=== PATIENT | female | born 1965 | race Caucasian/White ===

== ENCOUNTER 2021-06-15 12:42 | Emergency (ER) | payer OTHER ==
[~2021-06-15] VITALS: Ht 170.2 cm; Wt 90.9 kg
[2021-06-15 14:03] LABS: BASOPHILS % (AUTO) 0.6 % (0.0-2.0); EOSINOPHILS % (AUTO) 1.7 % (1.0-6.0); HEMATOCRIT 36.5 % (36-46); HEMOGLOBIN 11.8 g/dL (12.0-16.0); LYMPHOCYTES # (AUTO) 2.4 K/uL (1.0-4.8); LYMPHOCYTES % (AUTO) 22.6 % (22.0-44.0); MEAN CORPUSCULAR HEMOGLOBIN 24.9 pg (26.0-34.0); MEAN CORPUSCULAR HGB CONC 32.4 G/dL (31.0-37.0); MEAN CORPUSCULAR VOLUME 77 fL (80-100); MONOCYTES # (AUTO) 0.8 K/uL (0.1-1.0); MONOCYTES % (AUTO) 7.5 % (2.0-9.0); NEUTROPHILS # (AUTO) 7.2 K/uL (1.8-7.7); NEUTROPHILS % (AUTO) 67.6 % (40.0-70.0); PLATELET COUNT (AUTO) 249 K/uL (150-450); RED BLOOD CELL COUNT(AUTO) 4.74 MIL/uL (4.00-5.20); RED CELL DISTRIBUTION WIDTH 18.3 % (11.5-14.5)
[2021-06-15 14:14] LABS: ANION GAP 4 mmol/L (8-16); CALCIUM, TOTAL 8.8 mg/dL (8.8-10.5); CARBON DIOXIDE 34 mmol/L (22-29); CHLORIDE 101 mmol/L (98-107); CREATININE 0.96 mg/dL (0.60-1.30); GLOMERULAR FILTR. RATE CALC 60 mL/min (>60); GLUCOSE,RANDOM 127 mg/dL (70-110); POTASSIUM 4.2 mmol/L (3.5-5.1); SODIUM SERUM 139 mmol/L (136-145); UREA NITROGEN, BLOOD 18 mg/dL (7-18)
[2021-06-15 14:19] LABS: ALANINE AMINOTRANSFERASE 99 U/L (12-78); ALBUMIN 2.8 g/dL (3.4-5.0); ALKALINE PHOSPHATASE 68 U/L (46-116); ASPARTATE AMINOTRANSFERASE 86 U/L (15-37); BILIRUBIN,TOTAL 0.4 mg/dL (0.1-1.0); LIPASE 46 U/L (73-393); TOTAL PROTEIN, SERUM 7.5 g/dL (6.4-8.2)
[2021-06-15 14:23] LABS: B-TYPE NATRIURETIC PEPTIDE 8 pg/mL (0-100)
[2021-06-15 14:26] LABS: LACTIC ACID 0.6 mmol/L (0.4-2.0)
[2021-06-15 14:30] LABS: COVID AG,FIA SOURCE NASOPHARYNGEAL
[2021-06-15] MEDS ORDERED: PRED-549 PO (14:45)
[2021-06-15] MEDS ORDERED: METH5SOL3 PO (14:45)
[2021-06-15] MEDS ORDERED: ALPR-709 PO (14:45)
[2021-06-15] MEDS ORDERED: ARIP2TAB3 PO (14:45)
[2021-06-15] MEDS ORDERED: AZITHROMYCIN 500 MG/NS 250 ML IV ONE (15:30)
[2021-06-15] MEDS ORDERED: CefTRIAXone 1 GM/DEXTROSE 50 ML IV ONE (15:30)
[2021-06-15] MEDS ORDERED: DOXYCYCLINE HYCLATE 100 MG TABLET PO ONE (15:45)
[2021-06-15 15:56] VITALS: BP 121/70
[2021-06-15] MEDS ORDERED: DOXY50 PO (15:57)
== END 2021-06-15 16:23 | disposition home or self-care (01) ==
LOC: EMS 12:42
DX: J44.9 Chronic obstructive pulmonary disease, unspecified (principal); J18.9 Pneumonia, unspecified organism; I50.9 Heart failure, unspecified; F17.210 Nicotine dependence, cigarettes, uncomplicated; F11.90 Opioid use, unspecified, uncomplicated; Z20.822 Contact with and (suspected) exposure to COVID-19
CPT/HCPCS: 36415; 71045; 80053; 83605; 83690; 83880; 84484; 85025; 87426; 93005; 99285; G0480

== ENCOUNTER 2021-12-04 11:09 | Emergency (ER) | payer OTHER ==
[~2021-12-04] VITALS: Ht 170.2 cm; Wt 90.9 kg
[~2021-12-04 11:09] MED LIST: ALPR-709 PO; ARIP2TAB3 PO; DOXY50 PO; METH5SOL3 PO; PRED-549 PO
[2021-12-04 12:18] VITALS: BP 129/90
[2021-12-04] MEDS ORDERED: POVIDONE-IODINE 10% 120 ML SOLUTION TP ONE (12:30)
[2021-12-04] MEDS ORDERED: BUPIVACAINE HCL/PF 0.25% 10 ML VIAL SQ ONE (12:30)
[2021-12-04] MEDS ORDERED: IBUPROFEN 600 MG TABLET PO ONE (13:00)
[2021-12-04] MEDS ORDERED: IBUP-2070 PO (13:01)
[2021-12-04] MEDS ORDERED: SULF-261 PO (13:01)
[2021-12-04] MEDS ORDERED: CEPH-558 PO (13:01)
== END 2021-12-04 13:34 | disposition home or self-care (01) ==
LOC: EMS 11:09
DX: L02.414 Cutaneous abscess of left upper limb (principal); I50.9 Heart failure, unspecified; J44.9 Chronic obstructive pulmonary disease, unspecified; F17.210 Nicotine dependence, cigarettes, uncomplicated; F11.90 Opioid use, unspecified, uncomplicated
CPT/HCPCS: 99283; 10060; J3490

== ENCOUNTER 2021-12-11 21:59 | Emergency (ER) | payer OTHER ==
[~2021-12-11] VITALS: Ht 170.2 cm; Wt 90.9 kg
[~2021-12-11 21:59] MED LIST changes: +CEPH-558 PO; +IBUP-2070 PO; +SULF-261 PO
[2021-12-12] MEDS ORDERED: CLINDAMYCIN 600 MG/D5% WATER 50 ML IV ONE (00:45)
[2021-12-12] MEDS ORDERED: CLIN300C58 PO (00:48)
[2021-12-12 01:20] LABS: BASOPHILS % (AUTO) 0.4 % (0.0-2.0); HEMATOCRIT 36.8 % (36-46); HEMOGLOBIN 11.9 g/dL (12.0-16.0); LYMPHOCYTES # (AUTO) 1.8 K/uL (1.0-4.8); LYMPHOCYTES % (AUTO) 30.2 % (22.0-44.0); MEAN CORPUSCULAR HEMOGLOBIN 26.6 pg (26.0-34.0); MEAN CORPUSCULAR HGB CONC 32.3 G/dL (31.0-37.0); MEAN CORPUSCULAR VOLUME 82 fL (80-100); MONOCYTES # (AUTO) 0.5 K/uL (0.1-1.0); MONOCYTES % (AUTO) 8.2 % (2.0-9.0); NEUTROPHILS # (AUTO) 3.5 K/uL (1.8-7.7); NEUTROPHILS % (AUTO) 59.2 % (40.0-70.0); PLATELET COUNT (AUTO) 156 K/uL (150-450); RED BLOOD CELL COUNT(AUTO) 4.48 MIL/uL (4.00-5.20); RED CELL DISTRIBUTION WIDTH 16.6 % (11.5-14.5)
[2021-12-12 01:30] LABS: CALCIUM, TOTAL 9.5 mg/dL (8.8-10.5); CREATININE 1.01 mg/dL (0.60-1.30); POTASSIUM 4.4 mmol/L (3.5-5.1)
[2021-12-12 01:36] LABS: ALBUMIN 2.9 g/dL (3.4-5.0); BILIRUBIN,TOTAL 0.2 mg/dL (0.1-1.0); TOTAL PROTEIN, SERUM 7.7 g/dL (6.4-8.2)
[2021-12-12 01:44] LABS: COVID AG,FIA SOURCE NASAL SWAB
[2021-12-12 02:02] LABS: INFLUENZA TYPE A NEGATIVE FOR TYPE A (NEGATIVE); INFLUENZA TYPE B NEGATIVE FOR TYPE B (NEGATIVE)
[2021-12-12] MEDS ORDERED: ACET-66 PO (03:12)
[2021-12-12 03:18] VITALS: BP 137/83
== END 2021-12-12 03:26 | disposition home or self-care (01) ==
LOC: EMS 22:00
DX: L03.114 Cellulitis of left upper limb (principal); J44.9 Chronic obstructive pulmonary disease, unspecified; F11.20 Opioid dependence, uncomplicated; I50.9 Heart failure, unspecified; F17.210 Nicotine dependence, cigarettes, uncomplicated; F32.A Depression, unspecified; Z87.19 Personal history of other diseases of the digestive system; Z87.898 Personal history of other specified conditions; Z98.890 Other specified postprocedural states; Z20.822 Contact with and (suspected) exposure to COVID-19
CPT/HCPCS: 99284; 87426; 80053; 85025; 87804; 36415; 96365; J3490

== ENCOUNTER 2022-01-31 11:24 | Inpatient (IN) | payer OTHER ==
[~2022-01-31] VITALS: Ht 170.2 cm; Wt 93.1 kg
[~2022-01-31 11:24] MED LIST changes: +ACET-66 PO; +CLIN300C58 PO
[2022-01-31] MEDS ORDERED: IPRATROPIUM BROMIDE 0.5 MG/2.5 ML NEB SOLUTION NEB ONE (11:45)
[2022-01-31] MEDS ORDERED: ALBUTEROL SULFATE 5 MG/ML 20 ML NEB SOLN [BULK] NEB ONE (11:45)
[2022-01-31] MEDS ORDERED: 0.9% SODIUM CHLORIDE 5 ML NEB SOLUTION NEB ONE (11:53)
[2022-01-31 12:01] LABS: COVID AG,FIA SOURCE NASAL SWAB
[2022-01-31 12:26] LABS: INFLUENZA TYPE A NEGATIVE FOR TYPE A (NEGATIVE); INFLUENZA TYPE B NEGATIVE FOR TYPE B (NEGATIVE)
[2022-01-31 12:28] LABS: BASOPHILS % (AUTO) 0.6 % (0.0-2.0); EOSINOPHILS % (AUTO) 3.2 % (1.0-6.0); HEMATOCRIT 28.8 % (36-46); HEMOGLOBIN 9.2 g/dL (12.0-16.0); LYMPHOCYTES # (AUTO) 1.2 K/uL (1.0-4.8); LYMPHOCYTES % (AUTO) 15.6 % (22.0-44.0); MEAN CORPUSCULAR HEMOGLOBIN 26.4 pg (26.0-34.0); MEAN CORPUSCULAR HGB CONC 31.9 G/dL (31.0-37.0); MEAN CORPUSCULAR VOLUME 83 fL (80-100); MONOCYTES # (AUTO) 0.7 K/uL (0.1-1.0); MONOCYTES % (AUTO) 8.7 % (2.0-9.0); NEUTROPHILS # (AUTO) 5.7 K/uL (1.8-7.7); NEUTROPHILS % (AUTO) 71.9 % (40.0-70.0); PLATELET COUNT (AUTO) 197 K/uL (150-450); RED BLOOD CELL COUNT(AUTO) 3.47 MIL/uL (4.00-5.20); RED CELL DISTRIBUTION WIDTH 16.3 % (11.5-14.5)
[2022-01-31 12:40] LABS: ANION GAP 3 mmol/L (8-16); CALCIUM, TOTAL 8.7 mg/dL (8.8-10.5); CARBON DIOXIDE 30 mmol/L (22-29); CHLORIDE 105 mmol/L (98-107); CREATININE 0.71 mg/dL (0.60-1.30); GLOMERULAR FILTR. RATE CALC > 60 mL/min (>60); GLUCOSE,RANDOM 114 mg/dL (70-110); POTASSIUM 4.2 mmol/L (3.5-5.1); SODIUM SERUM 138 mmol/L (136-145); UREA NITROGEN, BLOOD 25 mg/dL (7-18)
[2022-01-31 12:45] LABS: ALANINE AMINOTRANSFERASE 116 U/L (12-78); ALBUMIN 2.2 g/dL (3.4-5.0); ALKALINE PHOSPHATASE 84 U/L (46-116); ASPARTATE AMINOTRANSFERASE 55 U/L (15-37); BILIRUBIN,TOTAL 0.3 mg/dL (0.1-1.0); TOTAL PROTEIN, SERUM 7.1 g/dL (6.4-8.2)
[2022-01-31 12:50] LABS: B-TYPE NATRIURETIC PEPTIDE 104 pg/mL (0-100)
[2022-01-31] MEDS ORDERED: CefTRIAXone 1 GM/DEXTROSE 50 ML IV ONE (14:00)
[2022-01-31] MEDS ORDERED: AZITHROMYCIN 500 MG/NS 250 ML IV ONE (14:00)
[2022-01-31] MEDS ORDERED: PIPERACILLIN/TAZO 3.375 GM/D5W 50 ML IV ONE (14:15)
[2022-01-31] MEDS ORDERED: ACETAMINOPHEN 325 MG TABLET PO PRN (14:30)
[2022-01-31] MEDS ORDERED: NALOXONE HCL 1 MG/ML 2 ML SYRINGE IVP ONE (15:30)
[2022-01-31] MEDS: HEPARIN SODIUM,PORCINE 5,000 UNITS/ML VIAL SQ SCH (15:44)
[2022-01-31 16:03] LABS: ABG BASE EXCESS 5.9 mmol/L (-2.0-3.0); ABG HCO3 29.1 mmol/L (22.0-26.0); ABG METHEMOGLOBIN 0.3 % (0.0-1.5); ABG OXYGEN CONTENT 15.3 mL/dL (15.0-23.0); ABG OXYGEN SATURATION 99.3 % (95.0-98.0); ABG PCO2 48 mmHg (35-45); ABG TOTAL HEMOGLOBIN 10.7 G/dL (12.0-18.0); PO2, ARTERIAL BG 172.7 mmHg (84.0-92.0); SOURCE, BLOOD GAS ARTERIAL; TEMPERATURE, FAHRENHEIT, BG 98.6 FAHREN (96.0-98.6)
[2022-01-31 16:04] LABS: ABG A-A DIFF O2 93.7 mmHg (10-20.0); O2 DEVICE,BLOOD GAS BIPAP (ROOM AIR); SITE, BLOOD GAS RT RADIAL; SPONTANEOUS VT, BG 620 ml
[2022-01-31 20:18] VITALS: BP 113/71
[2022-01-31] MEDS ORDERED: SODIUM CHLORIDE 0.9% 250 ML IV ONE (20:40)
[2022-01-31] MEDS: PIPERACILLIN/TAZO 3.375 GM/D5W 50 ML IV SCH (20:41)
[2022-01-31] MEDS: FAMOTIDINE 20 MG TABLET PO SCH (20:42)
[2022-01-31] MEDS: OxyCODONE HCL/ACETAMINOPHEN 5-325 MG TABLET PO PRN (20:42)
[2022-01-31] MEDS: DOCUSATE SODIUM 100 MG CAPSULE PO SCH (20:42)
[2022-01-31] MEDS ORDERED: OXYC10TA48 PO (22:14)
[2022-01-31] MEDS ORDERED: GABA-1181 PO (22:14)
[2022-01-31] MEDS ORDERED: LORA-999 PO (22:14)
[2022-01-31] MEDS ORDERED: BACL5TAB PO (22:14)
[2022-01-31 23:19] VITALS: BP 116/73
[2022-02-01] MEDS: GuaiFENesin/D-METHORPHAN [SUGAR-FREE] 200-20MG/10 ML SYRUP UDCUP PO PRN (00:33)
[2022-02-01] MEDS: PIPERACILLIN/TAZO 3.375 GM/D5W 50 ML IV SCH ×4 (03:09→20:27)
[2022-02-01 03:42] VITALS: BP 110/66
[2022-02-01 07:11] VITALS: BP 118/63
[2022-02-01] MEDS: FAMOTIDINE 20 MG TABLET PO SCH ×2 (08:41→20:27)
[2022-02-01] MEDS: DOCUSATE SODIUM 100 MG CAPSULE PO SCH ×2 (08:41→20:27)
[2022-02-01] MEDS: HEPARIN SODIUM,PORCINE 5,000 UNITS/ML VIAL SQ SCH ×3 (08:42→16:00)
[2022-02-01 11:23] VITALS: BP 121/72
[2022-02-01] MEDS: METHADONE HCL 10 MG TABLET PO SCH (14:08)
[2022-02-01 15:08] VITALS: BP 104/56
[2022-02-01 19:31] VITALS: BP 92/57
[2022-02-01 23:36] VITALS: BP 107/61
[2022-02-02] MEDS: HEPARIN SODIUM,PORCINE 5,000 UNITS/ML VIAL SQ SCH ×3 (00:51→15:21)
[2022-02-02] MEDS: PIPERACILLIN/TAZO 3.375 GM/D5W 50 ML IV SCH ×4 (02:30→20:01)
[2022-02-02] MEDS: GuaiFENesin/D-METHORPHAN [SUGAR-FREE] 200-20MG/10 ML SYRUP UDCUP PO PRN (02:30)
[2022-02-02] MEDS: ALBUTEROL SULFATE 2.5 MG/0.5 ML NEB SOLUTION NEB PRN ×2 (02:47→19:56)
[2022-02-02] MEDS ORDERED: SODIUM CHLORIDE 0.9% 250 ML IV ONE (03:48)
[2022-02-02 04:04] VITALS: BP 104/63
[2022-02-02 07:54] VITALS: BP 127/72
[2022-02-02] MEDS: FAMOTIDINE 20 MG TABLET PO SCH ×2 (08:05→20:00)
[2022-02-02] MEDS: METHADONE HCL 10 MG TABLET PO SCH (08:05)
[2022-02-02] MEDS: DOCUSATE SODIUM 100 MG CAPSULE PO SCH ×2 (08:05→20:00)
[2022-02-02 11:22] VITALS: BP 132/70
[2022-02-02] MEDS ORDERED: BACL10TA PO (12:24)
[2022-02-02] MEDS ORDERED: ARIP2TAB27 PO (12:24)
[2022-02-02 15:49] VITALS: BP 128/69
[2022-02-02] MEDS: OxyCODONE HCL/ACETAMINOPHEN 5-325 MG TABLET PO PRN (20:00)
[2022-02-02 21:16] VITALS: BP 112/74
[2022-02-03] MEDS: HEPARIN SODIUM,PORCINE 5,000 UNITS/ML VIAL SQ SCH ×3 (00:30→16:12)
[2022-02-03 01:41] VITALS: BP 102/65
[2022-02-03] MEDS: PIPERACILLIN/TAZO 3.375 GM/D5W 50 ML IV SCH ×4 (01:54→20:19)
[2022-02-03] MEDS: OxyCODONE HCL/ACETAMINOPHEN 5-325 MG TABLET PO PRN ×5 (01:56→20:23)
[2022-02-03] MEDS: ALBUTEROL SULFATE 2.5 MG/0.5 ML NEB SOLUTION NEB PRN ×2 (05:31→15:16)
[2022-02-03 06:17] VITALS: BP 108/75
[2022-02-03 08:08] VITALS: BP_SYST 102; BP_SYST 118; BP_DIAS 68; BP_DIAS 73
[2022-02-03] MEDS: DOCUSATE SODIUM 100 MG CAPSULE PO SCH ×2 (08:39→20:20)
[2022-02-03] MEDS: METHADONE HCL 10 MG TABLET PO SCH (08:39)
[2022-02-03] MEDS: FAMOTIDINE 20 MG TABLET PO SCH ×2 (08:39→20:19)
[2022-02-03 10:07] LABS: QUANTIFERON, TB GOLD PLUS Negative (Negative)
[2022-02-03 11:17] VITALS: BP 100/70
[2022-02-03 20:32] VITALS: BP 115/71
[2022-02-04] VITALS (7 sets, daily range): BP systolic 91–134; BP diastolic 51–78
[2022-02-04] MEDS: PIPERACILLIN/TAZO 3.375 GM/D5W 50 ML IV SCH ×4 (01:06→20:03)
[2022-02-04] MEDS: HEPARIN SODIUM,PORCINE 5,000 UNITS/ML VIAL SQ SCH ×3 (01:06→15:51)
[2022-02-04] MEDS: OxyCODONE HCL/ACETAMINOPHEN 5-325 MG TABLET PO PRN ×4 (03:46→20:03)
[2022-02-04] MEDS: METHADONE HCL 10 MG TABLET PO SCH (08:42)
[2022-02-04] MEDS: FAMOTIDINE 20 MG TABLET PO SCH ×2 (08:43→20:03)
[2022-02-04] MEDS: DOCUSATE SODIUM 100 MG CAPSULE PO SCH ×3 (08:43→21:00)
[2022-02-04] MEDS ORDERED: 0.9% SODIUM CHLORIDE 5 ML NEB SOLUTION NEB ONE (13:52)
[2022-02-04] MEDS: ALBUTEROL SULFATE 2.5 MG/0.5 ML NEB SOLUTION NEB PRN ×2 (13:55→19:34)
[2022-02-04] MEDS: ONDANSETRON HCL 4 MG/2 ML VIAL IVP PRN (15:50)
[2022-02-04 18:55] LABS: APPEARANCE,URINE CLEAR (CLEAR); BILIRUBIN,URINE NEGATIVE (NEGATIVE); GLUCOSE, URINE (UA) NEGATIVE (NEGATIVE); KETONES,URINE NEGATIVE (NEGATIVE); LEUKOCYTE ESTERASE ,URINE NEGATIVE (NEGATIVE); NITRATE,URINE NEGATIVE (NEGATIVE); OCCULT BLOOD,URINE NEGATIVE (NEGATIVE); PROTEIN,URINE NEGATIVE (NEGATIVE); UROBILINOGEN,URINE <=1.0 mg/dL (<=1.0)
[2022-02-04 19:02] LABS: AMPHET/METH SCREEN,URINE NEGATIVE (NEGATIVE); BARBITURATE SCREEN, URINE NEGATIVE (NEGATIVE); BENZODIAZEPINES SCREEN,URINE NEGATIVE (NEGATIVE); CANNABINOID SCREEN,URINE NEGATIVE (NEGATIVE); COCAINE SCREEN,URINE NEGATIVE (NEGATIVE); METHADONE SCREEN, URINE POSITIVE (NEGATIVE); OPIATE SCREEN,URINE NEGATIVE (NEGATIVE); PHENCYCLIDINE SCREEN,URINE NEGATIVE (NEGATIVE)
[2022-02-05] MEDS ORDERED: SODIUM CHLORIDE 0.9% 500 ML IV ONE (00:09)
[2022-02-05] MEDS: HEPARIN SODIUM,PORCINE 5,000 UNITS/ML VIAL SQ SCH ×3 (00:10→15:09)
[2022-02-05] MEDS: OxyCODONE HCL/ACETAMINOPHEN 5-325 MG TABLET PO PRN ×4 (00:11→20:17)
[2022-02-05] MEDS: PIPERACILLIN/TAZO 3.375 GM/D5W 50 ML IV SCH ×4 (01:29→20:17)
[2022-02-05] MEDS: ONDANSETRON HCL 4 MG/2 ML VIAL IVP PRN (03:58)
[2022-02-05 04:14] VITALS: BP 110/73
[2022-02-05 08:00] VITALS: BP 114/78
[2022-02-05] MEDS: FAMOTIDINE 20 MG TABLET PO SCH ×2 (08:49→20:17)
[2022-02-05] MEDS: DOCUSATE SODIUM 100 MG CAPSULE PO SCH ×2 (08:49→21:00)
[2022-02-05] MEDS: METHADONE HCL 10 MG TABLET PO SCH (08:49)
[2022-02-05] MEDS: GuaiFENesin/D-METHORPHAN [SUGAR-FREE] 200-20MG/10 ML SYRUP UDCUP PO PRN (08:54)
[2022-02-05] MEDS ORDERED: 0.9% SODIUM CHLORIDE 5 ML NEB SOLUTION NEB ONE ×2 (11:04→20:45)
[2022-02-05 12:00] VITALS: BP 112/70
[2022-02-05] MEDS ORDERED: RINGERS SOLUTION,LACTATED 1,000 ML IV ONE ×2 (15:02→19:30)
[2022-02-05 16:00] VITALS: BP 110/71
[2022-02-05 17:28] LABS: BASOPHILS % (AUTO) 0.4 % (0.0-2.0); EOSINOPHILS % (AUTO) 1.8 % (1.0-6.0); HEMATOCRIT 31.6 % (36-46); HEMOGLOBIN 10.3 g/dL (12.0-16.0); LYMPHOCYTES # (AUTO) 1.7 K/uL (1.0-4.8); LYMPHOCYTES % (AUTO) 24.7 % (22.0-44.0); MEAN CORPUSCULAR HEMOGLOBIN 26.2 pg (26.0-34.0); MEAN CORPUSCULAR HGB CONC 32.5 G/dL (31.0-37.0); MEAN CORPUSCULAR VOLUME 81 fL (80-100); MONOCYTES # (AUTO) 0.4 K/uL (0.1-1.0); MONOCYTES % (AUTO) 6.2 % (2.0-9.0); NEUTROPHILS # (AUTO) 4.7 K/uL (1.8-7.7); NEUTROPHILS % (AUTO) 66.9 % (40.0-70.0); PLATELET COUNT (AUTO) 197 K/uL (150-450); RED BLOOD CELL COUNT(AUTO) 3.91 MIL/uL (4.00-5.20); RED CELL DISTRIBUTION WIDTH 16.1 % (11.5-14.5)
[2022-02-05 17:40] LABS: CALCIUM, TOTAL 9.1 mg/dL (8.8-10.5); CREATININE 1.33 mg/dL (0.60-1.30); POTASSIUM 4.2 mmol/L (3.5-5.1)
[2022-02-05 17:45] LABS: ALBUMIN 2.4 g/dL (3.4-5.0); BILIRUBIN,TOTAL 0.2 mg/dL (0.1-1.0); TOTAL PROTEIN, SERUM 7.9 g/dL (6.4-8.2)
[2022-02-05 19:20] VITALS: BP 107/64
[2022-02-05] MEDS: ALBUTEROL SULFATE 2.5 MG/0.5 ML NEB SOLUTION NEB PRN (20:51)
[2022-02-05] MEDS: LOPERAMIDE HCL 2 MG CAPSULE PO PRN (21:56)
[2022-02-05 23:30] VITALS: BP 112/64
[2022-02-06] MEDS: PIPERACILLIN/TAZO 3.375 GM/D5W 50 ML IV SCH ×3 (01:04→13:55)
[2022-02-06 04:25] VITALS: BP 118/64
[2022-02-06] MEDS: OxyCODONE HCL/ACETAMINOPHEN 5-325 MG TABLET PO PRN ×2 (05:06→11:12)
[2022-02-06] MEDS: LOPERAMIDE HCL 2 MG CAPSULE PO PRN ×2 (05:06→09:17)
[2022-02-06 08:10] VITALS: BP 130/76
[2022-02-06] MEDS: DOCUSATE SODIUM 100 MG CAPSULE PO SCH (09:00)
[2022-02-06] MEDS: FAMOTIDINE 20 MG TABLET PO SCH (09:09)
[2022-02-06] MEDS: METHADONE HCL 10 MG TABLET PO SCH (09:13)
[2022-02-06] MEDS: HEPARIN SODIUM,PORCINE 5,000 UNITS/ML VIAL SQ SCH ×3 (09:16→15:52)
[2022-02-06] MEDS ORDERED: SODIUM CHLORIDE 0.9% 500 ML IV ONE (09:29)
[2022-02-06] MEDS: ONDANSETRON HCL 4 MG/2 ML VIAL IVP PRN (11:12)
[2022-02-06 11:37] VITALS: BP 101/54
[2022-02-06] MEDS ORDERED: 0.9% SODIUM CHLORIDE 5 ML NEB SOLUTION NEB ONE (14:44)
[2022-02-06 14:46] VITALS: BP 110/71
[2022-02-06] MEDS: ALBUTEROL SULFATE 2.5 MG/0.5 ML NEB SOLUTION NEB PRN (15:26)
[2022-02-06] MEDS ORDERED: AMOX1TAB16 PO (17:11)
== END 2022-02-06 18:00 | disposition home or self-care (01) | DRG 143 ==
LOC: EMS 11:26 → 5S 19:00 → 5N 02-02 02:40
PROVIDERS: ADMIT Internal Medicine; ATTEND Internal Medicine
DX: J93.9 Pneumothorax, unspecified (principal); J96.01 Acute respiratory failure with hypoxia; E44.0 Moderate protein-calorie malnutrition; I50.9 Heart failure, unspecified; J18.9 Pneumonia, unspecified organism; J44.1 Chronic obstructive pulmonary disease with (acute) exacerbation; D64.9 Anemia, unspecified; F20.9 Schizophrenia, unspecified; F32.A Depression, unspecified; B18.2 Chronic viral hepatitis C; F17.200 Nicotine dependence, unspecified, uncomplicated; Z20.822 Contact with and (suspected) exposure to COVID-19; F11.90 Opioid use, unspecified, uncomplicated; Z79.899 Other long term (current) drug therapy; Z68.32 Body mass index [BMI] 32.0-32.9, adult; Z90.2 Acquired absence of lung [part of]; J44.0 Chronic obstructive pulmonary disease with (acute) lower respiratory infection
CPT/HCPCS: 36600; 71045; 71250; 80053; 81003; 82805; 83036; 83880; 84484; 85025; 86171; 86480; 87015; 87040; 87077; 87081; 87205; 87206; 87804; 93005; 94640; 94644; 94660; 99291; G0378; J0456; J0696; J1644; J2310; J2405; J2543; J7040; J7050; J7120; 36415-L1; 36415-TC; J7613